=== PATIENT | female | born 1955 | race Caucasian/White ===

== ENCOUNTER → 2018-06-02 14:38 | Outpatient (CLI) | payer OTHER, SELFPAY ==
[2018-06-02 15:07] LABS: Absolute Lymphocyte Count 1.93 X10^3/ul (0.83-4.51); Absolute Neutrophil Count 2.6 X10^3/uL (2.0-7.7); Basophil# 0.02 X10^3/uL; Basophil% 0.4 % (0-1); Eosinophil# 0.06 X10^3/uL; Eosinophils% 1.2 % (0-5); Hematocrit 38.8 % (37-47); Hemoglobin 12.3 g/dl (12.0-15.0); Lymphocyte # 1.93 X10^3/ul (4.0); Lymphocyte % 39.3 % (19-41); Mean Corp Hgb Conc 31.7 g/gl (32-36); Mean Corpuscular Hgb 27.8 pg (27.0-32.0); Mean Corpuscular Volume 87.6 fL (81-99); Mean Platelet Vol. 10.5 fl (6.2-12.0); Monocyte# 0.27 X10^3/uL; Monocyte% 5.5 % (0-10); Neutrophil # 2.62 X10^3/uL (2.7-7.7); Neutrophil % 53.4 % (47-70); Platelet Count 278 K/mm3 (150-450); RBC Distribution Width CV 13.9 % (11.6-14.6); RBC Distribution Width SD 44.1 fl (35.1-43.9); Red Blood Count 4.43 M/mm3 (4.2-5.4); White Blood Count 4.9 K/mm3 (4.4-11.0)
[2018-06-02 15:10] LABS: POSITIVE COUNT NO; POSITIVE DIFFERENTIAL NO; POSITIVE MORPHOLOGY NO
[2018-06-02 15:21] LABS: ALB/GLOB Ratio 1.2 RATIO (0.9-2.4); AST(SGOT) 17 U/L (15-37); Alanine Aminotransfer ALT/SGPT 14 U/L (13-56); Albumin, Serum 3.8 g/dL (3.2-5.0); Alkaline Phosphatase 71 U/L (45-117); Anion Gap 10 (5-15); BUN 16 mg/dL (7-18); BUN/Creat Ratio 27.7 RATIO (10-20); Calcium,Total 9.3 mg/dL (8.5-10.1); Chloride 105 mmol/L (98-107); Creatinine, Serum 0.58 mg/dL (0.55-1.02); EST Glomerular Filtration Rate 112 mL/min (>60); Est Glom Filt Rate - Afr Amer 136 mL/min (>60); Globulin 3.3 g/dL (2.2-4.2); Glucose 79 mg/dL (74-106); Potassium 4.4 mmol/L (3.5-5.1); Protein, Total 7.1 g/dL (6.4-8.2); Sodium Level 142 mmol/L (136-145)
[2018-06-02 15:36] LABS: Microalbumin,Random Urine 25.7 mg/L (NO RANGE EST.)
== END ==
PROVIDERS: Visit Provider Family Medicine
DX: Z79.1 Long term (current) use of non-steroidal anti-inflammatories (NSAID) (principal)
CPT/HCPCS: 36415; 80053; 82043; 82570; 85025

== ENCOUNTER → 2018-08-29 10:14 | Outpatient (CLI) | payer OTHER, SELFPAY ==
--- NOTE | 2018-08-29 10:17 | BI_ITS ---
MAMMOGRAPHY - BILATERAL SCREENING REASON FOR EXAM: Female, 63 years old. Routine annual screening examination. PERTINENT HISTORY: Aunt with breast cancer. Remote right stereotactic breast biopsy. TECHNIQUE: Digital bilateral breast denis (3D mammographic acquisition) in the CC and MLO projections. 2-D mediolateral oblique (MLO) and craniocaudad (CC) views of both breasts were obtained. CAD: Full Field Digital Mammography with Computer Added Detection was performed. COMPARISON: Comparison is made with prior study dated May 25, 2016. FINDINGS: Breast Composition: There are scattered areas of fibroglandular density. There are no dominant masses or suspicious calcifications. There now is evidence of a 1.3 cm x 1.3 cm well-defined nodule in the upper lateral portion of the right breast. There is also evidence of a 1.3 cm well-defined nodule in the inferior slightly medial aspect of the left breast. Correlation with ultrasound is recommended for further evaluation. A tissue clip marker is once again seen in the upper-outer quadrant of the right breast. No other significant abnormalities are identified. BI/SCREENING MAMM (CAD), BILAT IMPRESSION: New nodular densities in the breasts as described. Correlation with ultrasound is recommended. ASSESSMENT CATEGORY: BIRADS Category 0: Incomplete. Need additional imaging evaluation. A letter regarding these results will be sent to the patient by the facility within 30 days. Approximately 10% of breast cancers are not detected by mammography. A normal mammogram should not delay biopsy of a clinically suspicious abnormality. [id number] Electronically Signed: Jp Velasco MD at 11:22 EST , Service support ,
== END ==
PROVIDERS: Family Provider Family Medicine; PCP Family Medicine; Referring Provider Family Medicine; Visit Provider Family Medicine
DX: Z00.00 Encounter for general adult medical examination without abnormal findings (principal); Z12.31 Encounter for screening mammogram for malignant neoplasm of breast
CPT/HCPCS: 77063; 77067

== ENCOUNTER → 2018-08-31 07:43 | Outpatient (CLI) | payer OTHER, SELFPAY ==
--- NOTE | 2018-08-31 07:46 | US_ITS ---
STUDY: ULTRASOUND BREAST - RIGHT REASON FOR EXAM: Female, 63 years old. Abnormal screening mammogram. TECHNIQUE: Axial and longitudinal images of the RIGHT breast were performed with a high resolution ultrasound transducer. COMPARISON: Comparison is made with prior mammogram dated August 29, 2018. FINDINGS: RIGHT Breast: There is a 9 mm x 9 mm x 5 mm cyst at 11:00 position of the breast at 6 cm from the nipple. This corresponds to the mammographic findings. IMPRESSION: The mammographic abnormality corresponds to 9 mm x 9 mm x 5 mm cyst at 11:00 position of the breast at 6 cm from the nipple. ASSESSMENT CATEGORY: The mammographic abnormality corresponds to a 9 mm x 9 mm x 5 mm cyst. Electronically Signed: Jp Velasco MD at 13:46 EST , Service support , STUDY: ULTRASOUND BREAST - LEFT REASON FOR EXAM: Female, 63 years old. Abnormal screening mammogram. TECHNIQUE: Axial and longitudinal images of the LEFT breast were performed with a high resolution ultrasound transducer. COMPARISON: Comparison is made with prior mammogram dated August 29, 2018. FINDINGS: LEFT Breast: There is a 9 mm x 11 mm x 5 mm cyst at the 8:00 position of the breast at 4 cm from the nipple. Along its inferior margin, there is a 2 mm x 2 mm x 2 mm polypoid density. Aspiration is recommended. This corresponds to the mammographic abnormality. US/Breast Limited Unilateral IMPRESSION: The mammographic abnormality corresponds to a 9 mm x 11 mm x 5 mm cyst. Within it, there is a 2 mm x 2 mm x 2 mm polypoid density. Aspiration is recommended. ASSESSMENT CATEGORY: BIRADS Category 2: Benign. A letter regarding these results will be sent to the patient by the facility within 30 days. Electronically Signed: Jp Velasco MD at 13:48 EST , Service support ,
== END ==
PROVIDERS: Family Provider Family Medicine; PCP Family Medicine; Referring Provider Family Medicine; Visit Provider Family Medicine
DX: N60.01 Solitary cyst of right breast (principal); N60.02 Solitary cyst of left breast
CPT/HCPCS: 76642

== ENCOUNTER → 2018-09-12 13:08 | Outpatient (CLI) | payer OTHER, SELFPAY ==
[2018-09-05 07:34] VITALS: BMI 38.1
--- NOTE | 2018-09-12 13:11 | US_ITS ---
STUDY: ULTRASOUND BREAST - LEFT REASON FOR EXAM: Female, 63 years old. Ultrasound guided core biopsy of the nodule at the 8:00 position of the breast at 4 cm from the nipple. TECHNIQUE: Axial and longitudinal images of the LEFT breast were performed with a high resolution ultrasound transducer. COMPARISON: Comparison is made with prior sonogram dated August 31, 2018. FINDINGS: LEFT Breast: Under direct sonographic guidance, the surgeon performed 4 core biopsies of the complex cyst at the 8:00 position of the breast at 4 cm from the nipple. US/US Breast Biopsy 1st Lesion IMPRESSION: Successful ultrasound-guided core biopsy. ASSESSMENT CATEGORY: BIRADS Category 2: Benign. A letter regarding these results will be sent to the patient by the facility within 30 days. Electronically Signed: Jp Velasco, at 14:58 EST , Service support ,
--- NOTE | 2018-09-12 14:00 | BRBX_PTH ---
PATIENT: GERA COLLINS LOC: OPUS U#:[id number] AGE/SX: 69/F ROOM: RE09/12/[address]: Dr. Roldan Salazar MD : 1955 BED: DIS: SPEC #: [id number] RECD: 09/12/18 14:31 STATUS: CONNIE MARIA DEL ROSARIO #: [id number] CARMELA: 09/12/18 14:[address]: Roldan Salazar DEPT: SURGICAL PATHOLOGY RECD BY: Linwood Lemon ENTERED: 09/12/18 14:49 SP TYPE: BREAST BX OTHR DR: Dr. Edd Flores MD Tissues: Left breast, NOS Procedures: Surgery Specimen Level IV HEADER OPERATION: Ultrasound-guided left breast biopsy PRE-OP DIAGNOSIS: Left breast nodule, cystic with solid component TISSUE SUBMITTED: Left breast ISCHEMIC TIME: 60 seconds FIXATION TIME: 5.5 hours MICROSCOPIC DIAGNOSIS Left breast, ultrasound-guided core biopsy: Focal fibrocystic changes. Negative for atypia or malignancy. TOMMY:rikki 09/13/18 COMMENT Correlation with clinical, radiologic findings and appropriate follow up are necessary. MICROSCOPIC DESCRIPTION Slides are reviewed. GROSS DESCRIPTION Received in fixative is one container labeled with the patient's name and designated left breast. The specimen consists of multiple elongated fragments of walsh-yellow fibroadipose tissue that in aggregate measure 1.5 x 1 x 0.1 cm. The entire specimen is submitted in one cassette. / TOMMY:rikki 09/12/18 TC:5 CPT: 45573
--- NOTE | 2018-09-12 14:29 | PCM.OPRPT ---
Problem List (1) Abnormal finding on breast imaging Status: Acute Report of Operation Date of Procedure: 09/12/18 Pre-Operative Diagnosis: Abnormal mammogram/ultrasound to left breast Post-Operative Diagnosis: Same Surgery/Procedure Performed:: Ultrasound-guided handheld mammotome breast biopsy left breast Type of Anesthesia:: Local Estimated Blood Loss (mL): < 5 cc Description of Procedure: Patient was brought into the ultrasound room. Placed in the supine position. Left breast was ultrasounded at the 8 o'clock position and the lesion was identified. I prepped the breast with chlorhexidine. I injected 1% lidocaine plain. I injected local posterior to the lesion under ultrasound guidance. A skin tone was made. Under ultrasound guidance I directed the hand-held mammotome needle posterior to the lesion. I took numerous biopsies and ablated this area completely. Under ultrasound guidance I placed a small titanium clip. Steri-Strips are applied sterile dressings were applied and the patient tolerated the procedure well. - Admit VTE Documentation VTE Present on Admission: No VTE Mechan Device Prophylaxis: None VTE Pharm Prophylaxis ordered?: No Reason prophylaxis not ordered:: Treatment Not Indicated
== END ==
PROVIDERS: Family Provider Family Medicine; PCP Family Medicine; Referring Provider Surgery; Visit Provider Surgery
DX: N60.12 Diffuse cystic mastopathy of left breast (principal)
CPT/HCPCS: 19083; 88305

== ENCOUNTER 2018-11-15 10:00 | Outpatient (RCR) | payer MEDICARE, SELFPAY ==
[2018-09-05 07:34] VITALS: BMI 38.1
--- NOTE | 2018-10-24 10:13 | HP.PTEVAL_ITS ---
Patient's Visit Information GERA COLLINS is a 63 year old F referred to Physical Therapy by Edd Flores MD with a diagnosis of postural instability due to L>R weak core/trunk: L leg pain. Date of Evaluation: 10/24/18 Physical Therapist: ASTRID Price - Visit Plan Frequency: 1-2x /Week Duration: 2 Months Plan: 1-2X/ week for 4-8 weeks to increase HR, postural and core strength, gait mechanics, brain work and multi-tasking, high level of balance, simulate in and out of a car with HEP - Subjective Findings: Pt reports that she has PD. She reports that her L leg and knee hurts. Her PD has been pretty well managed until this time and most of her symptoms have been L sided. She had grandchildren visit from [place] and the littlest one is 15 mo and her leg started to hurt worse....it felt like a hairline fx that she has had in the past. She had seen several orthos and it ended up with a hair line fx. Dx with PD in 2011. OVer the last month or 2 months she leans to the R side and she finds when she is sitting she leans to the R side and she tries to correct that and she can't. She stays active and needs to play cards or sew all the time to stay awake cause the PD meds make her feel sleepy. She just started using the can last WED cause of the pain and started with the cane then. She sees her PD Dr on the . SHe is slower with her walking, L leg pain, and leans to the R side..... Sit to stands: she is able to get up without her arms unless it is a soft squishy chair. She has not had any falls but has come close... her L foot catches a lot of things. Curb steps are ok if careful. She does not get her L leg up high enought like when ascending the stairs. She is struggling to roll in bed and to get in and out of the car - Pain L leg pain Pain Intensity (Out of 10): 1 Pain Intensity Range: 10 Comment: with walking around - Objective Gait: Walks with a straight cane with shortened stride length with decrease stance time on the L LE. posture: leans to the R sittingin a chair or walking. FGA: 16. Sit to stand: up and out of a chair without the use of her UE's. LE MMT: B hip flex 4+/5, B knee ext 4+/5, B knee flex 4+/5, B hip abd 4+/5. Pt struggles with toe raises. Pt is able to do 3/5 normal ROM bridge. Stairs: up and down recip with 1 hand rail - Balance Scores Functional Gait Assessment Score: 16 % Disability: 46.6700 - Goals Goal 1:: I HEP Goal Time Frame: 6-8 Weeks Goal 2:: Be able to roll over in bed with increase 50% ease Goal Time Frame: 6-8 Weeks Goal 3:: Be able to get in and out of the car with 50% ease Goal Time Frame: 6-8 Weeks Goal 4:: Be able to walk with more heel to toe gait pattern with increase stride length Goal Time Frame: 6-8 Weeks - Rehabilitation Potential Rehabilitation Potential: Good - Anticipated Interventions Patient/Client Instruction: Educate patient on: Condition, Plan of Care For the Purpose of:: To improve muscle performance and motor function, To improve ability to perform ADL's, To increase tolerance to activity/condition/position, To improve performance and independence with ADL's, To decrease level of supervision to perform tasks, To improve ability of physical actions for home/community/work/leisure, To improve gait and locomotor functions, To improve endurance, To improve balance, To improve safety with gait Therapeutic Exercise to Include: Strength training, Endurance training, Balance training, Coordination, Postural training, Gait and locomotor training, Neuromo tor development, Active ROM, Dynamic Lumbar Stabilization For the Purpose of:: To improve muscle performance and motor function, To improve ability to perform ADL's, To increase tolerance to activity/condition/position, To improve performance and independence with ADL's, To decrease level of supervision to perform tasks, To improve ability of physical actions for home/community/work/leisure, To improve gait and locomotor functions, To improve endurance, To improve balance, To improve safety with gait Functional Training to Include: Gait training For the Purpose of:: To improve gait and locomotor functions, To improve safety with gait Thank you for the opportunity to evaluate your patient. For Medicare and Medicare HMO plans, please review the plan of care and approve it. It will need to be FAXED BACK to us at [phone] for Medicare purposes. For Medicare only, by signing this I certify the plan of care. Please let me know if there are questions or concerns regarding this plan of care. Physician Signature: Da te:
--- NOTE | 2018-10-24 11:50 | HP.OTEVAL_ITS ---
Patient's Visit Information GERA COLLINS is a 63 year old F, referred to Occupational Therapy by Edd Flores MD, with a diagnosis of Postural instability, weak core, parkinsons. Date of Evaluation: 10/24/18 Occupational Therapist: Zari Pulido - Subjective Subjective: Pt seen for initial occupational therapy evaluation for Parkinson's, postural instability, weak core. Pt states has had increased pain L leg and leaning to her L side more than usual. Pt started using cane first of October due to L leg pain. Pt lives w/ spouse, condo 1 story no steps to enter. Pt completes BADL's independently, spouse completes laundry, pt completes meal prep. Pt does all the driving secondary to spouse unable to drive due to vision deficit. R hand dominent. Hobbies, sewing, cobian, decorating, entertaining. Pt states no concerns with BUE ROM or strength. - Pain L hip pain 2 - Objective Objective/Observation: Pt demo no pain with BUE, good ROM BUE. - ROM ROM Comments: BUE WFL all planes - Strength Cosmetology Teacher: R 60#, L 63# Lateral Pinch: R 10#, L 10# Tripod Pinch: R 8#, L 10# Strength Comments: Right hand dominent - Edema Other: No edema - Sensation Sensation Comments: No numbness or tingling BUE, L leg above knee to L thigh occassional tingling - Quick DASH-Disab of Arm,Shoulder& Hand Quick DASH Score: 4.5450 - Rehabilitation General Assessment: Pt demo good BUE ROM and strength. Pt demo no pain in BUE and independent with BADL and IADL tasks entertaining friends and cooking/cleaning at home. Pt demonstrates no need for skilled OT interventions at this time. OT evaluation only. Pt to participate with PT services to address lower extremity and balance concerns Rehabilitation Potential: Excellent - Visit Plan General Plan: Pt demo good BUE ROM and strength. Pt demo no pain in BUE and independent with BADL and IADL tasks entertaining friends and cooking/cleaning at home. Pt demonstrates no need for skilled OT interventions at this time. OT evaluation only. Pt to participate with PT services to address lower extremity and balance concerns TEXT: Thank you for the opportunity to evaluate your patient. For Medicare and Medicare HMO plans, please review the plan of care and approve it. It will need to be FAXED BACK to us at [phone] for Medicare purposes. Please let me know if there are questions or concerns regarding this plan of care. Physician Signature: Date:
--- NOTE | 2018-11-15 13:03 | HP.PTDCSUM ---
HP - PT D/C Summary It has been my pleasure to treat GERA COLLINS under orders from Edd Flores MD, for the diagnosis of postural instability due to L>R weak core/trunk: L leg pain for a total of 6 visit(s). Discharge Date: 11/15/18 Please see the following information for a summary of their discharge status. - Subjective Subjective: Pt is just hurting her knee too much. Neurologist increased her meds a little bit and if she sees improvement then cut back on mirapex. As far as her knee goes, she will go see a Orthopedic Dr. - Pain L leg pain Pain Intensity (Out of 10): 2 - Overall Improvement % Improvement: 50 - Objective Objective/Function: Gait: slightly increased stride but limited by L knee pain. - Goals Goal 1:: I HEP Goal 2:: Be able to roll over in bed with increase 50% ease Goal Progress: Progressing Goal 3:: Be able to get in and out of the car with 50% ease Goal Progress: Goal Met Goal 4:: Be able to walk with more heel to toe gait pattern with increase stride length Goal Progress: Progressing - Plan Plan: DC PT to HEP and to Dr to see about knee pain. - D/C Information Discharge Comments: DC PT to HEP and physician/ ortho consult for her knee pain If there are questions or concerns regarding this patient's physical therapy, please feel free to call me at [phone]. Thank you for the referral of this patient. Sincerely, Whit Doyle, MPT
== END 2018-11-15 19:00 | disposition home or self-care (01) ==
LOC: PT 10:00
PROVIDERS: Family Provider Family Medicine; PCP Family Medicine; Referring Provider Family Medicine; Visit Provider Family Medicine
DX: R26.89 Other abnormalities of gait and mobility (principal); M79.605 Pain in left leg
CPT/HCPCS: 97110; 97161; 97165; 97530

== ENCOUNTER → 2019-03-09 | Outpatient (CLI) | payer MEDICARE, SELFPAY ==
[2018-09-05 07:34] VITALS: BMI 38.1
--- NOTE | 2019-03-09 15:12 | RAD_ITS ---
STUDY: X-RAY - FACIAL BONES REASON FOR STUDY: Female, 63 years old. Injury TECHNIQUE: 3 view(s) of the facial bones. COMPARISON: None. FINDINGS: Unremarkable bilateral frontozygomatic and zygomatic-temporal arches. Normal bilateral medial and inferior orbital jones. Normal bilateral orbits. There is no orbital gas. Intact visualized nasal bones. Intact anterior nasal spine. The remaining visualized osseous structures are normal. There is no demonstrated acute displaced fracture. Unremarkable visualized paranasal sinuses. RAD/Facial Bones min 3 Views IMPRESSION: Unremarkable x-ray examination of the facial bones. No acute displaced fracture, or traumatic subluxation based on current assessment. If patient's symptoms persist, reassessment is recommended in about 7-10 days' time. Electronically Signed: Ramses Dewey MD at 15:45 EDT Tel [phone], Service support ,
--- NOTE | 2019-03-09 15:13 | RAD_ITS ---
STUDY: X-RAY - LEFT WRIST REASON FOR EXAM: Female, 63 years old. Injury due to fall TECHNIQUE: 4 view(s) of the wrist were obtained. COMPARISON: None. FINDINGS: Unremarkable alignment of the proximal and distal carpal rows. No acute displaced fracture, or traumatic subluxation based on current assessment. Mild osteoarthritis. The soft tissue structures are unremarkable. There is no demonstrated metallic or radiopaque foreign body. RAD/Wrist min 3 Views IMPRESSION: No acute displaced fracture, or traumatic subluxation based on current assessment. Mild osteoarthritis. If patient's symptoms persist, reassessment is recommended in about 7-10 days' time. Electronically Signed: Ramses Dewey MD at 15:47 EDT Tel [phone], Service support ,
== END | disposition home or self-care (01) ==
LOC: MTRAD 15:09
PROVIDERS: Family Provider Family Medicine; PCP Family Medicine; Referring Provider Family Medicine; Visit Provider Family Medicine
DX: S69.92XA Unspecified injury of left wrist, hand and finger(s), initial encounter (principal); W19.XXXA Unspecified fall, initial encounter
CPT/HCPCS: 70150; 73110

== ENCOUNTER → 2019-03-23 12:42 | Outpatient (CLI) | payer MEDICARE, SELFPAY ==
[2018-09-05 07:34] VITALS: BMI 38.1
--- NOTE | 2019-03-23 12:44 | RAD_ITS ---
STUDY: X-RAY - LEFT WRIST REASON FOR EXAM: Female, 63 years old. Pain, recent injury. TECHNIQUE: 3 view(s) of the wrist were obtained. COMPARISON: 03/09/2019 left wrist radiographs. FINDINGS: No visible fracture. No osseous destruction. Alignment anatomic. Mild degenerative changes. Soft tissues unremarkable. RAD/Wrist min 3 Views IMPRESSION: No acute osseous abnormality. Electronically Signed: Alvin Lepe, at 0:15 EDT Tel , Service support ,
== END ==
PROVIDERS: Family Provider Family Medicine; PCP Family Medicine; Referring Provider Family Medicine; Visit Provider Family Medicine
DX: S69.92XA Unspecified injury of left wrist, hand and finger(s), initial encounter (principal)
CPT/HCPCS: 73110

== ENCOUNTER → 2019-06-13 15:18 | Outpatient (CLI) | payer MEDICARE, SELFPAY ==
[2018-09-05 07:34] VITALS: BMI 38.1
[2019-06-13 17:42] LABS: Absolute Lymphocyte Count 2.23 X10^3/uL (0.83-4.51); Absolute Neutrophil Count 4.4 X10^3/uL (2.0-7.7); Basophil# 0.04 X10^3/uL; Basophil% 0.6 % (0-1); Eosinophil# 0.11 X10^3/uL; Eosinophils% 1.5 % (0-5); Hematocrit 39.1 % (37-47); Hemoglobin 12.2 g/dL (12.0-15.0); Lymphocyte # 2.23 X10^3/ul (4.0); Lymphocyte % 31.1 % (19-41); Mean Corp Hgb Conc 31.2 g/dL (32-36); Mean Corpuscular Volume 89.7 fL (81-99); Mean Platelet Vol. 10.3 fl (6.2-12.0); Monocyte% 5.6 % (0-10); NRBC Flagged by Analyzer 0 % (0-5); Neutrophil # 4.38 X10^3/uL (2.7-7.7); Neutrophil % 60.9 % (47-70); Platelet Count 312 K/mm3 (150-450); RBC Distribution Width SD 45.8 fl (35.1-43.9); Red Blood Count 4.36 M/mm3 (4.2-5.4); White Blood Count 7.2 K/mm3 (4.4-11.0)
[2019-06-13 18:15] LABS: ALB/GLOB Ratio 1.1 RATIO (0.9-2.4); AST(SGOT) 20 U/L (15-37); Alanine Aminotransfer ALT/SGPT 14 U/L (13-56); Albumin, Serum 3.9 g/dL (3.2-5.0); Alkaline Phosphatase 75 U/L (45-117); Anion Gap 7 (5-15); BUN 16 mg/dL (7-18); Calcium,Total 9.2 mg/dL (8.5-10.1); Chloride 105 mmol/L (98-107); Cholesterol 199 mg/dL (200); Creatinine, Serum 0.67 mg/dL (0.55-1.02); EST Glomerular Filtration Rate 95 mL/min (>60); Est Glom Filt Rate - Afr Amer 115 mL/min (>60); Ferritin 41 ng/mL (8-252); Globulin 3.6 g/dL (2.2-4.2); Glucose 92 mg/dL (74-106); High Density Lipoprotein 73 mg/dL; Potassium 4.2 mmol/L (3.5-5.1); Protein, Total 7.5 g/dL (6.4-8.2); Sodium Level 140 mmol/L (136-145); Thyroid Stim Hormone (TSH) 1.79 uIU/mL (0.358-3.74); Triglycerides 105 mg/dL; Very Low Density Lipoprotein 21 mg/dL (5-40)
== END ==
PROVIDERS: Family Provider Family Medicine; PCP Family Medicine; Referring Provider Family Medicine; Visit Provider Family Medicine
DX: Z00.00 Encounter for general adult medical examination without abnormal findings (principal); E66.01 Morbid (severe) obesity due to excess calories; D50.9 Iron deficiency anemia, unspecified; G20 Parkinson's disease; R00.2 Palpitations
CPT/HCPCS: 36415; 80053; 80061; 82728; 84443; 85025

== ENCOUNTER → 2019-08-30 09:55 | Outpatient (CLI) | payer MEDICARE, SELFPAY ==
[2018-09-05 07:34] VITALS: BMI 38.1
--- NOTE | 2019-08-30 09:58 | BI_ITS ---
MAMMOGRAPHY - BILATERAL SCREENING REASON FOR EXAM: Female, 64 years old. Routine annual screening examination. PERTINENT HISTORY: Aunt with breast cancer. Remote right stereotactic breast biopsy. TECHNIQUE: Digital bilateral breast nannette (3D mammographic acquisition) in the CC and MLO projections. 2-D mediolateral oblique (MLO) and craniocaudad (CC) views of both breasts were obtained. CAD: Full Field Digital Mammography with Computer Added Detection was performed. COMPARISON: Comparison is made with prior examination dated August 29, 2018 and May 25, 2016. FINDINGS: Breast Composition: There are scattered areas of fibroglandular density. There are no dominant masses or suspicious calcifications. Stable 1 cm x 1.1 signed a well-defined nodule in the upper lateral portion of the right breast. This was demonstrated to be a cyst on prior sonogram. The previously seen nodular density in the slightly inferior medial aspect of the left breast as almost completely resolved. A tissue clip marker is seen within. No other significant abnormalities are identified. BI/SCREEN MAMM (CAD) W/NANNETTE BILAT IMPRESSION: Stable bilateral screening mammogram. Yearly follow-up mammogram recommended. (A) ASSESSMENT CATEGORY: BIRADS Category 2: Benign. A letter regarding these results will be sent to the patient by the facility within 30 days. Approximately 10% of breast cancers are not detected by mammography. A normal mammogram should not delay biopsy of a clinically suspicious abnormality. [id number] Electronically Signed: Jp Velasco, at 11:25 EST , Service support ,
== END ==
PROVIDERS: Family Provider Family Medicine; PCP Family Medicine; Referring Provider Family Medicine; Visit Provider Family Medicine
DX: Z00.00 Encounter for general adult medical examination without abnormal findings (principal); Z12.31 Encounter for screening mammogram for malignant neoplasm of breast
CPT/HCPCS: 77063; 77067

== ENCOUNTER → 2020-08-14 | Outpatient (CLI) | payer MEDICARE, SELFPAY ==
[2018-09-05 07:34] VITALS: BMI 38.1
== END | disposition home or self-care (01) ==
LOC: LABSPEC 15:51
PROVIDERS: PCP Family Medicine; Visit Provider Family Medicine
DX: U07.1 COVID-19 (principal)
CPT/HCPCS: 87635; U0003

== ENCOUNTER 2020-08-19 13:31 | Outpatient (CLI) | payer MEDICARE, SELFPAY ==
[2020-08-18 13:29] VITALS: BMI 38.9
[2020-08-19 14:10] VITALS: BP 138/80; PULSE 71; RESP 24; TEMP 36.7; O2SAT 97; BMI 38.9
[2020-08-19 15:00] VITALS: BP 138/68; PULSE 67; RESP 22; TEMP 36.9; O2SAT 97
[2020-08-19 15:30] VITALS: BP 139/71; PULSE 68; RESP 22; TEMP 36.8; O2SAT 97
[2020-08-19 15:46] VITALS: BP 129/66; PULSE 68; RESP 24; TEMP 36.9; O2SAT 97
[2020-08-19 16:15] VITALS: BP 123/67; PULSE 70; RESP 24; TEMP 36.8; O2SAT 97
[2020-08-19 16:51] VITALS: BP 141/89; PULSE 71; RESP 16; TEMP -12.6; TEMP 9.4; O2SAT 98
== END 2020-08-19 16:52 | disposition home or self-care (01) ==
LOC: MS2OUT 13:32 → MS2 13:32
PROVIDERS: PCP Family Medicine; Referring Provider Nurse Practitioner Acute Care; Visit Provider Nurse Practitioner Acute Care
DX: U07.1 COVID-19 (principal)
CPT/HCPCS: J7050; M0239; Q0239

== ENCOUNTER → 2021-03-17 08:36 | Outpatient (CLI) | payer MEDICARE, BC, SELFPAY ==
--- NOTE | 2021-03-17 08:39 | BI_ITS ---
MAMMOGRAPHY - BILATERAL SCREENING 3-D TOMOSYNTHESIS REASON FOR EXAM: Female, 65 years old. SCREENING - PERTINENT HISTORY: No significant family history. TECHNIQUE: 2-D mammograms and 3-D Tomosynthesis of the breast (s) were performed. CAD was performed. COMPARISON: 08/30/2019 FINDINGS: The breast composition is composed of scattered fibroglandular density. Scattered benign calcifications are seen. No dense spiculated masses or suspicious microcalcifications are identified. No architectural distortion is identified. There is no skin thickening or retraction. There has been no significant change since the prior study. BI/SCREENING MAMM (CAD), BILAT IMPRESSION: No mammographic signs of malignancy. Routine yearly mammograms recommended. ASSESSMENT CATEGORY: BIRADS Category 1: Negative. A letter regarding these results will be sent to the patient by the facility within 30 days. FOLLOW UP RECOMMENDATION: Yearly follow up mammogram recommended. (A) Approximately 10% of breast cancers are not detected by mammography. A normal mammogram should not delay biopsy of a clinically suspicious abnormality. Electronically Signed: Ok Zuniga MD at 10:33 EDT Tel , Service support ,
== END ==
PROVIDERS: PCP Family Medicine; Referring Provider Nurse Practitioner Family; Visit Provider Nurse Practitioner Family
DX: Z12.31 Encounter for screening mammogram for malignant neoplasm of breast (principal)
CPT/HCPCS: 77067

== ENCOUNTER → 2021-05-11 10:07 | Outpatient (CLI) | payer MEDICARE, BC, SELFPAY ==
[2021-05-11 12:20] LABS: Hematocrit 38.9 % (37-47); Hemoglobin 12.3 g/dL (12.0-15.0); Mean Corp Hgb Conc 31.6 g/dL (32-36); Mean Corpuscular Hgb 27.6 pg (27.0-32.0); Mean Corpuscular Volume 87.4 fL (81-99); Mean Platelet Vol. 11.1 fl (6.2-12.0); Platelet Count 248 K/mm3 (150-450); RBC Distribution Width CV 14.5 % (11.6-14.6); RBC Distribution Width SD 46.3 fl (35.1-43.9); Red Blood Count 4.45 M/mm3 (4.2-5.4); White Blood Count 5.9 K/mm3 (4.4-11.0)
[2021-05-11 12:31] LABS: AST(SGOT) 15 U/L (15-37); Alanine Aminotransfer ALT/SGPT 8 U/L (13-56); Albumin, Serum 3.6 g/dL (3.2-5.0); Alkaline Phosphatase 77 U/L (45-117); Anion Gap 6 (5-15); BUN 19 mg/dL (7-18); Calcium,Total 9.3 mg/dL (8.5-10.1); Chloride 107 mmol/L (98-107); Cholesterol 206 mg/dL (200); Creatinine, Serum 0.63 mg/dL (0.55-1.02); EST Glomerular Filtration Rate 100 mL/min (>60); Est Glom Filt Rate - Afr Amer 121 mL/min (>60); Globulin 3.7 g/dL (2.2-4.2); Glucose 94 mg/dL (74-106); High Density Lipoprotein 66 mg/dL; Potassium 4.1 mmol/L (3.5-5.1); Protein, Total 7.3 g/dL (6.4-8.2); Sodium Level 141 mmol/L (136-145); Triglycerides 142 mg/dL; Very Low Density Lipoprotein 28 mg/dL (5-40)
== END ==
PROVIDERS: PCP Family Medicine; Referring Provider Nurse Practitioner Family; Visit Provider Nurse Practitioner Family
DX: Z13.1 Encounter for screening for diabetes mellitus (principal); Z13.220 Encounter for screening for lipoid disorders
CPT/HCPCS: 36415; 80053; 80061; 85027

== ENCOUNTER → 2022-03-23 | Outpatient (CLI) | payer MEDICARE, BC, SELFPAY ==
--- NOTE | 2022-03-23 12:50 | BI_ITS ---
MAMMOGRAPHY - BILATERAL SCREENING REASON FOR EXAM: Female, 66 years old. Routine annual screening examination. PERTINENT HISTORY: Non-contributory. TECHNIQUE: Digital bilateral breast nannette (3D mammographic acquisition) in the CC and MLO projections. 2-D mediolateral oblique (MLO) and craniocaudad (CC) views of both breasts were obtained. CAD: Full Field Digital Mammography with Computer Added Detection was performed. COMPARISON: Comparison is made with prior study 03/17/2021 and 08/30/2019. FINDINGS: Breast Composition: There are scattered areas of fibroglandular density. There are no dominant masses or suspicious calcifications. Stable 7.5 mm x 4.4 mm well-defined nodule in the upper lateral aspect of the right breast. A tissue clip marker is again seen in the deep upper lateral aspect of the right breast. Stable small benign-appearing bilateral axillary lymph nodes. No other significant abnormalities are identified. There has been no significant change since the prior study. BI/SCRN MAMM (CAD)W/NANNETTE BILAT IMPRESSION: Stable bilateral screening mammogram. Yearly follow-up mammogram recommended. (A) ASSESSMENT CATEGORY: BIRADS Category 2: Benign. A letter regarding these results will be sent to the patient by the facility within 30 days. Approximately 10% of breast cancers are not detected by mammography. A normal mammogram should not delay biopsy of a clinically suspicious abnormality. [id number] Electronically Signed: Jp Velasco MD at 9:16 EDT ,
--- NOTE | 2022-03-23 12:54 | BD_ITS ---
STUDY: DUAL ENERGY X-RAY ABSORPTIOMETRY / DXA REASON FOR EXAM: Female, 66 years old. V76.12ScreeningBONE DENSITY REASON FOR EXAM TECHNIQUE: Bone Mineral Density (BMD) measurements of lumbar spine and bilateral hips were obtained. COMPARISON: None. FINDINGS: Lumbar Spine (L1-L4): g/cm2 (0.934) / T-score (-1.0) / Z-score (0.8) Findings are suggestive of normal bone density with a low fracture risk. Left Femur Total: g/cm2 (0.922) / T-score (-0.2) / Z-score (1.1) Left Femoral Neck: g/cm2 (0.695) / T-score (-1.4) / Z-score (0.2) Right Femur Total: g/cm2 (0.833) / T-score (-0.9) / Z-score (0.4) Right Femoral Neck: g/cm2 (0.6-0) / T-score (-2.1) / Z-score (-0.5) BD/Dexa Bone Density Study IMPRESSION: The patient is considered osteopenic as outlined below according to World Julian Organization (WHO) criteria with a moderate fracture risk. Reference Information: The T-score is the number of standard deviations above or below the standard which is normal for young adults at their peak bone mineral density. The World Health Organization (WHO) interprets the T-scores as follows: Above -1 Normal bone density Between -1 and -2.5 Osteopenia Equal to / or below -2.5 Osteoporosis As a practical clinical guideline, osteopenia may be graded as follows: Mild -1 through -1.5 Moderate -1.6 through -2.0 Severe -2.1 through -2.4 The Z-score is the number of standard deviations above or below age-matched controls. A Z-score of less than -1.5 would be considered abnormal. References: 1. NIH Osteoporosis and Related Bone Diseases www osteo.org 2. International Society for Clinical Densitometry www iscd.org 3. National Osteoporosis Foundation www nof.org Electronically Signed: Jp Velasco MD at 14:23 EDT ,
== END | disposition home or self-care (01) ==
LOC: OPBD 12:48
PROVIDERS: PCP Family Medicine; Visit Provider Nurse Practitioner Family
DX: Z12.31 Encounter for screening mammogram for malignant neoplasm of breast (principal); Z13.820 Encounter for screening for osteoporosis; Z78.0 Asymptomatic menopausal state
CPT/HCPCS: 77063; 77067; 77080

== ENCOUNTER 2022-06-03 15:00 | Outpatient (CLI) | payer MEDICARE, BC, SELFPAY ==
[2022-06-03 18:03] LABS: Absolute Lymphocyte Count 2.05 X10^3/uL (0.83-4.51); Basophil# 0.03 X10^3/uL; Basophil% 0.5 % (0-1); Eosinophil# 0.07 X10^3/uL; Eosinophils% 1.1 % (0-5); Hematocrit 40.7 % (37-47); Lymphocyte # 2.05 X10^3/ul (0.83-4.51); Lymphocyte % 31.4 % (19-41); Mean Corp Hgb Conc 31.9 g/dL (32-36); Mean Corpuscular Hgb 28.3 pg (27.0-32.0); Mean Corpuscular Volume 88.7 fL (81-99); Mean Platelet Vol. 10.4 fl (6.2-12.0); Monocyte# 0.36 X10^3/uL; Monocyte% 5.5 % (0-10); NRBC Flagged by Analyzer 0 % (0-5); Neutrophil # 4.01 X10^3/uL (2.7-7.7); Neutrophil % 61.3 % (47-70); Platelet Count 337 K/mm3 (150-450); RBC Distribution Width CV 13.9 % (11.6-14.6); RBC Distribution Width SD 44.8 fl (35.1-43.9); Red Blood Count 4.59 M/mm3 (4.2-5.4); White Blood Count 6.5 K/mm3 (4.4-11.0)
[2022-06-03 18:11] LABS: ALB/GLOB Ratio 1.1 RATIO (0.9-2.4); AST(SGOT) 12 U/L (15-37); Alanine Aminotransfer ALT/SGPT 9 U/L (13-56); Albumin, Serum 3.9 g/dL (3.2-5.0); Alkaline Phosphatase 68 U/L (45-117); Anion Gap 5 (5-15); BUN 13 mg/dL (7-18); BUN/Creat Ratio 21.2 RATIO (10-20); Calcium,Total 9.8 mg/dL (8.5-10.1); Chloride 105 mmol/L (98-107); Creatinine, Serum 0.61 mg/dL (0.55-1.02); EST Glomerular Filtration Rate 104 mL/min (>60); Est Glom Filt Rate - Afr Amer 125 mL/min (>60); Ferritin 29 ng/mL (8-252); Globulin 3.6 g/dL (2.2-4.2); Glucose 93 mg/dL (74-106); Protein, Total 7.5 g/dL (6.4-8.2); Sodium Level 140 mmol/L (136-145)
[2022-06-03 18:28] LABS: Vitamin D,25 Hydroxy 46.7 ng/mL
[2022-06-04 13:37] LABS: PTHIN 32.8 pg/mL (18.4-80.1)
== END 2022-06-03 23:59 | disposition home or self-care (01) ==
LOC: MFPLAB 15:05
PROVIDERS: PCP Family Medicine; Referring Provider Family Medicine; Visit Provider Family Medicine
DX: G20 Parkinson's disease (principal); M85.80 Other specified disorders of bone density and structure, unspecified site
CPT/HCPCS: 36415; 80053; 82306; 82728; 83970; 85025

== ENCOUNTER → 2022-11-29 | Outpatient (CLI) | payer MEDICARE, BC, SELFPAY ==
--- NOTE | 2022-11-29 14:58 | RAD_ITS ---
INDICATION: Chronic Low Back Pain bilaterally low back EXAMINATION/TECHNIQUE: X-RAY - XR Spine Lumbar 2 or 3 Views COMPARISON: None. FINDINGS: VERTEBRAE: No acute fracture or subluxation. Severe facet arthrosis. Mild to moderate spondylotic degenerative changes. Disc space narrowing consistent with degenerative disc disease. Severe apex left curvature of the lumbar spine. No erosive changes. SOFT TISSUES: Unremarkable. INCLUDED ABDOMEN: Visualized upper abdomen is unremarkable. RAD/Lumbar Spine 2 or 3 Views IMPRESSION: Severe apex left curvature of the lumbar spine and moderate to severe degenerative changes. Electronically Signed: Iván Carrion DO at 23:53 EDT ,
== END | disposition home or self-care (01) ==
LOC: MTRAD 14:56
PROVIDERS: PCP Family Medicine; Referring Provider Family Medicine; Visit Provider Family Medicine
DX: M54.50 Low back pain, unspecified (principal)
CPT/HCPCS: 72100

== ENCOUNTER → 2022-12-14 | Outpatient (CLI) | payer MEDICARE, BC, SELFPAY ==
--- NOTE | 2022-12-14 14:43 | ECHOD_ITS ---
Reason For Study: MURMUR Procedure This was a 2D Doppler, Color Flow transthoracic echocardiogram. Exam performed in department. Left Ventricle Normal LV size. Left ventricular systolic function is normal. The estimated ejection fraction is 55 %. Stage 1 diastolic dysfunction. No regional wall motion abnormalities noted. Right Ventricle Normal RV size. Normal systolic function. Atria Normal left atrium. Normal right atrium. Mitral Valve Normal mitral valve. Tricuspid Valve The tricuspid valve is not well visualized. Aortic Valve The aortic valve is not well visualized. Pulmonic Valve Normal pulmonic valve. Great Vessels Normal aortic root. The pulmonary artery is normal size. Normal inferior vena cava. Pericardium/Pleural No pericardial effusion. MMode/2D Measurements & Calculations LVIDd: 5.1 cm IVSd: 1.1 cm Ao root diam: 3.2 cm LVIDs: 3.1 cm LVPWd: 1.1 cm RVDd: 2.7 cm FS: 40.3 % LAV(MOD-bp): 62.9 ml LA A4 area: 20.8 cm2 LA dimension(2D): 4.8 cm LAV(MOD-bp) Indexed: 32.0 ml/m2 LAV(MOD-sp2): 67.9 ml LAV(MOD-sp4): 58.5 ml RA A4 area: 16.6 cm2 Time Measurements MV dec time: 0.19 sec Doppler Measurements & Calculations MV E max edward: 64.3 cm/sec Lat Peak E' Edward: 13.4 cm/sec Med Peak E' Edward: 9.9 cm/sec MV A max edward: 67.0 cm/sec E/E' lat: 4.8 E/E' med: 6.5 MV E/A: 0.96 MV dec slope: 336.6 cm/sec2 Ao V2 max: 148.0 cm/sec LV V1 max: 145.5 cm/sec Ao max P.8 mmHg LV V1 max P.5 mmHg Ao V2 mean: 98.3 cm/sec LV V1 mean P.3 mmHg Ao mean P.5 mmHg LV V1 mean: 97.6 cm/sec Ao V2 VTI: 29.2 cm LV V1 VTI: 29.2 cm AV (velocity ratio): 1.0 PA V2 max: 125.0 cm/sec PA V2 mean: 85.8 cm/sec ECHO/Echo Complete Interpretation Summary Normal LV size. Left ventricular systolic function is normal. The estimated ejection fraction is 55 %. Stage 1 diastolic dysfunction. Ordering Physician: Diya Yanes Referring Physician: Diya Yanes Performed By: Jinny Leiva RDCS, RVT
== END | disposition home or self-care (01) ==
LOC: CVS 14:38
PROVIDERS: PCP Family Medicine; Referring Provider Family Medicine; Visit Provider Family Medicine
DX: R01.1 Cardiac murmur, unspecified (principal)
CPT/HCPCS: 93306

== ENCOUNTER → 2023-03-29 | Outpatient (CLI) | payer MEDICARE, BC, SELFPAY ==
--- NOTE | 2023-03-29 10:11 | BI_ITS ---
MAMMOGRAPHY - BILATERAL SCREENING REASON FOR EXAM: Female, 67 years old. Routine annual screening examination. PERTINENT HISTORY: Non-contributory. Prior left ultrasound-guided breast biopsy. TECHNIQUE: Digital bilateral breast nannette (3D mammographic acquisition) in the CC and MLO projections. 2-D mediolateral oblique (MLO) and craniocaudad (CC) views of both breasts were obtained. CAD: Full Field Digital Mammography with Computer Added Detection was performed. COMPARISON: Comparison is made with prior study dated March 23, 2022 and March 17, 2021. FINDINGS: Breast Composition: The breasts are almost entirely fatty. There are no dominant masses or suspicious calcifications. A tissue clip marker seen within the inferior medial aspect of the left breast within a tiny nodule. No other significant abnormalities are identified. There has been no significant change since the prior study. BI/SCRN MAMM (CAD)W/NANNETTE BILAT IMPRESSION: Stable bilateral screening mammogram. Yearly follow-up mammogram recommended. (A) ASSESSMENT CATEGORY: BIRADS Category 2: Benign. A letter regarding these results will be sent to the patient by the facility within 30 days. Approximately 10% of breast cancers are not detected by mammography. A normal mammogram should not delay biopsy of a clinically suspicious abnormality. [id number] Electronically Signed: Jp Velasco MD at 12:16 EDT ,
== END | disposition home or self-care (01) ==
PROVIDERS: PCP Family Medicine; Referring Provider Family Medicine; Visit Provider Family Medicine
DX: Z12.31 Encounter for screening mammogram for malignant neoplasm of breast (principal)
CPT/HCPCS: 77063; 77067

== ENCOUNTER → 2024-02-07 | Outpatient (CLI) | payer MEDICARE, BC, SELFPAY ==
[2024-02-07 10:05] LABS: Hematocrit 39.3 % (37-47); Hemoglobin 12.5 g/dL (12.0-15.0); Mean Corp Hgb Conc 31.8 g/dL (32-36); Mean Corpuscular Hgb 27.4 pg (27.0-32.0); Mean Corpuscular Volume 86.2 fL (81-99); Mean Platelet Vol. 9.7 fl (6.2-12.0); Platelet Count 282 K/mm3 (150-450); RBC Distribution Width CV 14.5 % (11.6-14.6); RBC Distribution Width SD 45.8 fl (35.1-43.9); Red Blood Count 4.56 M/mm3 (4.2-5.4); White Blood Count 4.7 K/mm3 (4.4-11.0)
[2024-02-07 10:29] LABS: Vitamin D,25 Hydroxy 44.6 ng/mL
[2024-02-07 10:35] LABS: ALB/GLOB Ratio 1.1 RATIO (0.9-2.4); AST(SGOT) 17 U/L (15-37); Alanine Aminotransfer ALT/SGPT 23 U/L (13-56); Albumin, Serum 3.8 g/dL (3.2-5.0); Alkaline Phosphatase 78 U/L (45-117); Anion Gap 7 (5-15); BUN 23 mg/dL (7-18); BUN/Creat Ratio 34.1 RATIO (10-20); Calcium,Total 9.4 mg/dL (8.5-10.1); Chloride 107 mmol/L (98-107); Cholesterol 186 mg/dL (200); Creatinine, Serum 0.68 mg/dL (0.55-1.02); EST Glomerular Filtration Rate 92 mL/min (>60); Est Glom Filt Rate - Afr Amer 112 mL/min (>60); Globulin 3.6 g/dL (2.2-4.2); Glucose 103 mg/dL (74-106); High Density Lipoprotein 71 mg/dL; Potassium 4.1 mmol/L (3.5-5.1); Protein, Total 7.4 g/dL (6.4-8.2); Sodium Level 139 mmol/L (136-145); Triglycerides 147 mg/dL; Very Low Density Lipoprotein 29 mg/dL (5-40)
== END | disposition home or self-care (01) ==
LOC: MTLAB 07:33
PROVIDERS: PCP Family Medicine; Referring Provider Family Medicine; Visit Provider Family Medicine
DX: Z13.1 Encounter for screening for diabetes mellitus (principal); M85.80 Other specified disorders of bone density and structure, unspecified site; E66.9 Obesity, unspecified; E78.5 Hyperlipidemia, unspecified
CPT/HCPCS: 36415; 80053; 80061; 82306; 85027

== ENCOUNTER → 2024-11-01 | Outpatient (CLI) | payer MEDICARE, BC, SELFPAY ==
--- NOTE | 2024-11-01 12:10 | BI_ITS ---
EXAM: SCRN MAMM (CAD)W/NANNETTE BILAT DATE: 11/01/2024 CLINICAL HISTORY: F, Age 69 y/o , SCREENING No family history. BREAST CANCER RISK ASSESSMENT: Not assessed. TECHNIQUE: Bilateral screening digital breast tomosynthesis with 2D and 3D images. Computer aided detection. COMPARISON: Prior exam(s) dated March 29, 2023.. FINDINGS: TISSUE DENSITY: The breast tissue is composed of scattered area of fibroglandular density. Bilateral Breast Mammographic Findings: No significant masses, calcifications or other abnormalities are identified. Stable 3 mm well-defined nodule with a tissue clip marker within it in the inferior anterior medial aspect of the left breast. BI/SCRN MAMM (CAD)W/NANNETTE BILAT IMPRESSION: Right Breast: BIRADS 1 NEGATIVE. Left Breast: BIRADS 3 PROBABLY BENIGN. OVERALL FINAL ASSESSMENT: BIRADS 2 BENIGN FINDING RECOMMENDATION: Routine annual follow-up in 1 Year A letter with findings and recommendations will be mailed to the patient. Reading Location: [place] [id number]
--- NOTE | 2024-11-01 12:30 | BD_ITS ---
PROCEDURE: DEXA BONE DENSITY STUDY 11/01/2024 REASON FOR EXAM: OSTEOPENIA F, age 69 y/o . Postmenopausal. TECHNIQUE: DXA scan of the lumbar spine and both hips using make and model. REFERENCE LINKS: ISCD Adult Positions COMPARISON: Comparison is made with prior study dated March 23, 2022. FINDINGS: BMD and T-SCORES Lumbar spine: 1.023 g/cm2, T-Score -0.4 L1 through L4 Change from prior: Improvement by 8.9% Left femoral neck: 0.712 g/cm2, T-Score -1.2 Femoral neck comparison data not recommended for monitoring change. Left total hip: 0.857 g/cm2, T-Score -0.7 Change from prior: Loss of 7% Right femoral neck: 0.614 g/cm2, T-Score -2.1 Femoral neck comparison data not recommended for monitoring change. Right total hip: 0.773 g/cm2, T-Score -1.4 Change from prior: Worsening by 7.2% Fracture Risk Calculation: FRAX (10-year Fracture Risk) Score: FRAX scores should never be reported in a patient with osteoporosis on DEXA or for any patient that is on bone medication. The patient doesmeet the pharmacological treatment recommendations for prevention of osteoporosis BD/Dexa Bone Density Study IMPRESSION: OSTEOPENIA. Recommend follow-up as clinically warranted. Reading Location: [place] [id number]
== END | disposition home or self-care (01) ==
LOC: OPBD 12:08
PROVIDERS: PCP Family Medicine; Referring Provider Orthopaedic Surgery Orthopaedic Surgery of the Spine; Visit Provider Orthopaedic Surgery Orthopaedic Surgery of the Spine
DX: Z12.31 Encounter for screening mammogram for malignant neoplasm of breast (principal); M81.0 Age-related osteoporosis without current pathological fracture
CPT/HCPCS: 77063; 77067; 77080

== ENCOUNTER → 2024-11-30 | Outpatient (CLI) | payer MEDICARE, BC, SELFPAY ==
--- NOTE | 2024-11-30 15:20 | MRI_ITS ---
PROCEDURE: SPINE LUMBAR (ROUTINE) 11/30/2024 REASON FOR EXAM: PAIN TECHNIQUE: Multiplanar and multisequence images were obtained without IV contrast administration. FINDINGS: A marked appearing leftward lumbar scoliosis with apex L3. No fracture. Mild rightward listhesis of L2 on L3 for example coronal 8 Conus Medullaris: Conus appears to terminate at T12-L1 and appears within limits. Cauda equina appears within limits. L1-2: Moderate disc space narrowing with disc desiccation. No central or foraminal significant appearing stenosis identified. L2-3: A [id number] disc space narrowing greater towards the right side and associated degenerative endplate change without significant appearing central or foraminal narrowing. L3-4: Moderate disc space narrowing greater towards the right with associated degenerative endplate change and cate-ad-wvexswto right foraminal narrowing. No significant appearing central or left foraminal narrowing. L4-5: Moderate disc space narrowing greater towards the right without significant appearing central or foraminal narrowing. L5-S1: Ocbzoqhb-vk-mbtryr disc space narrowing greater towards the left side with degenerative endplate changes. Suspect at least a unilateral nonacute appearing left L5 spondylolysis with anterolisthesis L5 on S1 greater towards the left side. Combination of uncovered disc, disc space narrowing, hypertrophic facet and ligamentous change appears to result in a severe left foraminal narrowing with possible impingement on the exiting left L5 nerve. No significant central or right foraminal narrowing. Limited images of the retroperitoneum appear within limits. MRI/Spine Lumbar (Routine) IMPRESSION: A marked appearing scoliosis with multilevel spondylosis/discogenic change and areas of spondylolisthesis and a possible at least unilateral left L5 spondylolysis as above. Reading Location: [id number]
== END | disposition home or self-care (01) ==
LOC: MRI 15:19
PROVIDERS: PCP Family Medicine; Referring Provider Orthopaedic Surgery Orthopaedic Surgery of the Spine; Visit Provider Orthopaedic Surgery Orthopaedic Surgery of the Spine
DX: M41.9 Scoliosis, unspecified (principal); M43.16 Spondylolisthesis, lumbar region
CPT/HCPCS: 72148